=== PATIENT | male | born 1990 | race Caucasian/White ===

== ENCOUNTER 2017-01-14 19:04 | Emergency (ER) | payer SELFPAY ==
--- NOTE | 2017-01-19 07:46 | EDPHY ---
ED Progress Note Narrative: Patient not seen by me. Patient was not triaged not evaluated by myself. He left when he noticed this was an emergency department and not an urgent care.
== END 2017-01-14 19:13 | disposition left against medical advice (07) ==
LOC: CED 19:04
DX: Z53.21 Procedure and treatment not carried out due to patient leaving prior to being seen by health care provider (principal)

== ENCOUNTER → 2017-10-20 | Outpatient (CLI) | payer OTHER ==
[~2017-10-20] MED LIST: IOPAMIDOL (ISOVUE-300) 100 ML BTL ONE
== END ==
LOC: CIMAGING 10:00
PROVIDERS: ATTEND Internal Medicine Gastroenterology
DX: R19.5 Other fecal abnormalities (principal)
CPT/HCPCS: 72193-PO; Q9967